=== PATIENT | female | born 1995 | race Caucasian/White ===

== ENCOUNTER 2016-08-05 14:53 | Emergency (ER) | payer SELFPAY ==
[~2016-08-05] VITALS: Ht 149.9 cm; Wt 44.1 kg
[2016-08-05 14:55] VITALS: Ht 149.9 cm; Wt 44.1 kg
--- NOTE | 2016-08-05 15:05 | ERPDOC ---
Departure Disposition Decision Date: Aug 05, 2016 Disposition Decision Time: 17:06 (YURY VANCE APRN) Disposition: 01 DISCHARGED HOME, SELF-CARE Impression Impression (YURY VANCE APRN) Impression: Primary Impression: Nausea & vomiting Vomiting type: unspecified Vomiting Intractability: non-intractable Qualified Codes: R11.2 - Nausea with vomiting, unspecified Additional Impression: Urinary tract infection Urinary tract infection type: acute cystitis Hematuria presence: with hematuria Qualified Codes: N30.01 - Acute cystitis with hematuria Severity: Moderate (YURY VANCE APRN) Condition: Improved Seen By: Mid-level only (YURY VANCE APRN) Patient Instructions: Acute Nausea and Vomiting (ED), Urinary Tract Infection in Women (ED) Problems/Meds/Labs Reviewed?: Yes Medications reviewed and manag: Yes (YURY VANCE APRN) Additional Instructions: You have a urinary tract infection. Take Cipro 500mg twice daily for 7 days. You may dissolve ondansetron 4mg ODT, 1 tab on your tongue every 4-6 hours as needed for nausea/vomiting. Drink 8-12 glass of water daily to stay hydrated. Rest. Avoid use of marijuana. Follow treatment plan Follow with your PCP for reevaluation Sunday if not improving. Follow up care ordered?: Yes Mental Status: Alert, Oriented (YURY VANCE APRN) Scripts Ciprofloxacin HCl (Ciprofloxacin HCl) 500 Mg Tablet 1 TAB PO Q12H for 7 Days, #14 TAB Prov: YURY VANCE APRN 08/05/16 Ondansetron (Ondansetron Odt) 4 Mg Tab.rapdis 4 MG PO Q4-6HPRN, #20 TAB Prov: YURY VANCE APRN 08/05/16 HPI - Abdominal Pain General Chief Complaint: Nausea,Vomiting,Diarrhea Stated Complaint: N/V Time Seen by Provider: 15:02 Source: patient (YURY VANCE APRN) Time Seen by Provider: 15:02 (JENNIFER HENSLEY DO) HPI - Abdominal Pain Initial Comments 20 YO F presents to ED with report of nausea and nonbilious/nonbloody vomiting that started this morning. Patient also reports she has had a subjective fever for 2 days ago. Patient is difficult to obtain hx. because she appears intoxicated. Patient admits that she has been in [place] for the last week smoking marijuana. Says she last smoked marijuana yesterday. Patient denies chills, cough, SOA, CP, abdominal pain, dysuria or back pain. Admits intermittent lower medial abdominal pain (none at this time) and diarrhea that started today. Patient denies any new sexual partner or new/different vaginal discharge. Pain Scale: Now: 0/10, Worst: 10/10 Quality: aching, cramping Location: suprapubic Associated Symptoms: fever/chills, other, DENIES: back pain, chest pain, diaphoresis, fatigue, headache, heartburn, nausea/vomiting, rash, shortness of breath, swelling/mass in abdomen, syncope, weakness (YURY VANCE A [employer]EL[employer]) Allergies: Coded Allergies: No Known Allergies (Unverified , 08/05/16) Past History Past Medical History Pt denies signifigant PMH (SALLIE VANCES A [employer]ELOPER) Surgical History Reproductive/: other (left ovarain cyst removal) (YURY VANCE [employer] DEVELOPER) Family History Family PMH: FOUND: other (noncontributory) (SALLIE VANCES A [employer]ELOPER) Social History Sexuality: male partner (YURY VANCE [employer] DEVELOPER) Review of Systems Constitutional Constitutional: fever, DENIES: chills, dizziness (SALLIE VANCES A [employer]ELOPER) Eyes General: DENIES: erythema, exudate Lids/Accessories: DENIES: erythema, swelling (SALLIE VANCES A [employer]ELOPER) ENMT Ears: DENIES: pain Sinuses: DENIES: congestion, rhinorrhea Mouth/Throat: DENIES: sore throat (SALLIE VANCES A [employer] DEVELOPER) Cardiovascular Cardiac: DENIES: chest pain, murmur Rhythm/Rate: DENIES: palpitations (SALLIE VANCES A [employer]ELOPER) Pulmonary Respiratory: DENIES: cough, dyspnea (SALLIE VANCES A [employer]ELOPER) GI Upper Abdomen: nausea, vomiting, DENIES: pain Lower Abdomen: DENIES: diarrhea, pain (SALLIE VANCES A [employer] DEVELOPER) General: DENIES: dysuria, pain (SALLIE VANCES A [employer] DEVELOPER) Musculoskeletal General: DENIES: joint pain, pain, tenderness (SALLIE VANCES A [employer]ELOPER) Integumentary Skin: DENIES: color change, itching, rash (SALLIE VANCES A [employer]ELOPER) Neurological General: DENIES: ataxia, change in strength, numbness, paralysis/paresis, weakness (SALLIE VANCES A [employer]ELOPER) Psychiatric Psychiatric: DENIES: anxiety, depression, nervousness (SALLIE VANCES A [employer] DEVELOPER) Physical Exam General General Nourishment: well nourished, well developed, no acute distress, adult General Body Habitus: disheveled (SALLIE VANCES A [employer] DEVELOPER) Vitals and Pain Weight: Kilograms: Height (feet): Height (inches): Triage Pain Scale: (SALLIE VANCES A [employer] DEVELOPER) Eyes (brief) Eyes Brief: found: EOMI, PERRL (SALLIE VANCES A [employer] DEVELOPER) ENMT (brief) ENMT Brief: FOUND: TM clear, TM good light reflex, mucosa moist, NOT FOUND: nasal exudate, nasal swelling, pharnyx erythema (SALLIE VANCES A [employer] DEVELOPER) Neck (brief) Neck: FOUND: trachea midline, NOT FOUND: adenopathy, spasm, tenderness, thyromegaly (SALLIE VANCES A [employer] DEVELOPER) Respiratory (brief) Respiratory: FOUND: clear all mello, equal bilaterally, symmetrical (SALLIE VANCES A [employer] DEVELOPER) Cardiovascular (brief) Cardiac: FOUND: regular rate, regular rhythm (SALLIE VANCES A [employer] DEVELOPER) Abdomen (brief) Abdominal Brief: FOUND: bowel normo active x4, soft, NOT FOUND: distended, tender (SALLIE VANCES A [employer] DEVELOPER) Musculoskeletal (brief) Musculoskeletal Brief: NOT FOUND: deformity, tenderness (SALLIE VANCES A [employer] DEVELOPER) Integumentary (brief) Integumentary Brief: FOUND: dry, pink, warm (SALLIE VANCES A [employer] DEVELOPER) Neurologic (brief) Neurological Brief: FOUND: CN w/o gross def to obs, motor-no gross deficits, sensory-no gross deficits (SALLIE VANCES A [employer] DEVELOPER) Psychiatric (brief) Psychiatric Brief: FOUND: alert, normal affect, oriented (SALLIE VANCES A [employer] DEVELOPER ) Differential Diagnoses Considering: Dehydration, Food Poisoning, Gastroenteritis, Hypokalemia, , UTI, Viral Syndrome Considering: PID, Bacterial Vaginitis, Yeast Vaginitis (SALLIE VANCES A [employer]EL[employer]) Progress Results/Orders Orders Procedure Category Date Status Time Cbc W/Auto LAB 08/05/16 Complete Diff-Reflex Manual 15:13 Cmp - Comprehensive LAB 08/05/16 Complete Metabolic 15:13 Lipase LAB 08/05/16 Complete 15:13 Iv Lock (Ed Only) EDM 08/05/16 Transmitted 15:13 Normal Saline (Normal PHA 08/05/16 Complete Saline Iv) 15:13 Ondansetron Inj PHA 08/05/16 Complete (Zofran) 15:15 LAB 08/05/16 Complete Qualitative, Urine 15:13 Drug Screen LAB 08/05/16 Complete Urine-Test At [facility] [place] UA, LAB 08/05/16 Complete Dip&Micro(Complete) & 15:50 Urine Culture ALIS 08/05/16 Complete 16:17 Normal Saline (Normal PHA 08/05/16 Complete Saline Iv) 16:30 Prochlorperazine PHA 08/05/16 Complete (Compazine) 17:00 Ketorolac (Toradol) PHA 08/05/16 Complete 17:15 Ciprofloxacin (Cipro) PHA 08/05/16 Complete 17:15 (JENNIFER HENSLEY DO) Lab Results Laboratory Tests Test 08/05/16 15:33 08/05/16 15:50 08/08/16 11:55 08/10/16 15:53 White Blood Count 13.2T/MM3 Red Blood Count 4.19M/MM3 Hemoglobin 12.2GM/DL Hematocrit 35.8% Mean Corpuscular Volume 85.4UM3 Mean Corpuscular Hemoglobin 29.1UUG Mean Corpuscular Hemoglobin Concent 34.1GM/DL RDW Standard Deviation 40.5FL Platelet Count 228T/MM3 Mean Platelet Volume 10.8UM3 Immature Granulocyte % (Auto) 0.4% Neutrophils (%) (Auto) 84.5% Lymphocytes (%) (Auto) 6.7% Monocytes (%) (Auto) 8.3% Eosinophils (%) (Auto) 0.0% Basophils (%) (Auto) 0.1% Absolute Immature Granulocyte (auto 0.05T/MM3 Absolute Neutrophils (auto) 11.2T/MM3 Absolute Lymphocytes (auto) 0.9T/MM3 Absolute Monocytes (auto) 1.1T/MM3 Absolute Eosinophils (auto) 0.0T/MM3 Absolute Basophils (auto) 0.0T/MM3 Turbidity < 20 Sodium Level 141MEQ/L Potassium Level 3.5MEQ/L Chloride Level 102MEQ/L Carbon Dioxide Level 24MEQ/L Anion Gap 15MEQ/L Blood Urea Nitrogen 11.0MG/DL Creatinine 0.6MG/DL Glomerular Filtration Rate Calc 127 BUN/Creatinine Ratio 18RATIO Glucose Level 115MG/DL Calculated Osmolality 271MOSM/KG Calcium Level 9.6MG/DL Total Bilirubin 1.00MG/DL Icterus Index < 2 Aspartate Amino Transf (AST/SGOT) 14U/L Alanine Aminotransferase (ALT/SGPT) 21U/L Alkaline Phosphatase 59U/L Total Protein 7.6G/DL Albumin 3.9G/DL Globulin 3.7G/DL Albumin/Globulin Ratio 1.1RATIO Lipase 28U/L Chemistry Specimen Hemolysis < 15 Urine Collection Type Voided-not cc-midstr Urine Color Yellow Urine Turbidity Sl cloudy Urine pH 6.5 Urine Specific Midnight 1.020 Urine Protein 2+ Urine Glucose (UA) Negative Urine Ketones 3+ Urine Blood 2+ Urine Nitrite Positive Urine Bilirubin Negative Urine Urobilinogen 0.2EU/DL Urine Leukocyte Esterase Trace Urine RBC 5-10/HPF Urine WBC 30-50/HPF Urine Squamous Epithelial Cells 5-10 Urine Bacteria 3+ Urine Culture Indicated Cult reflexed &setup Urine Test Negative Urine Opiates Screen NegativeNG/ML Urine Oxycodone Screen NegativeNG/ML Urine Methadone Screen NegativeNG/ML Urine Propoxyphene Screen NegativeNG/ML Urine Barbiturates Screen NegativeNG/ML Urine Tricyclic Antidepressants NegativeNG/ML Urine Phencyclidine Screen NegativeNG/ML Urine Amphetamines Screen NegativeNG/ML Urine Methamphetamines Screen NegativeNG/ML Urine Benzodiazepines Screen NegativeNG/ML Urine Cocaine Screen NegativeNG/ML Urine Cannabinoids Screen PositiveNG/ML Urine Drug Screen Confirmation Sent out Urine Drug Screen Information Ref lab rpt scanned Lab Scanned Report LAB RESULTS - [id number] REFERENCE [id number] (JENNIFER HENSLEY DO) Medications Current ED Medications Sodium Chloride (Normal Saline IV) 1,000 ml @ 0 mls/hr Q0M ONCE IV Last administered on 08/05/16 15:37; Start 08/05/16 at 15:13; Stop 08/05/16 at 15:15 ; Status DC Ondansetron HCl (Zofran) 4 mg O ONCE IV Last administered on 08/05/16 15:37; Start 08/05/16 at 15:15; Stop 08/05/16 at 15:16; Status DC Fentanyl 50 mcg 50 mcg O ONCE IV ; Start 08/05/16 at 15:30; Stop 08/05/16 at 15 :31; Status Cancel Sodium Chloride (Normal Saline IV) 1,000 ml @ 0 mls/hr Q0M ONCE IV Last administered on 08/05/16 16:46; Start 08/05/16 at 16:30; Stop 08/05/16 at 16:31 ; Status DC Prochlorperazine Edisylate (Compazine) 10 mg O ONCE IV Last administered on 16:51; Start 08/05/16 at 17:00; Stop 08/05/16 at 17:01; Status DC Ketorolac Tromethamine (Toradol) 30 mg O ONCE IV Last administered on 17:14; Start 08/05/16 at 17:15; Stop 08/05/16 at 17:16; Status DC Ciprofloxacin (Cipro) 500 mg O ONCE PO Last administered on 08/05/16 17:20; Start 08/05/16 at 17:15; Stop 08/05/16 at 17:16; Status DC (JENNIFER HENSLEY DO) Progress Progress WBC 13.2, no band CMP unremarkable UA 2+ ketones, 2+ blood, 30-50 WBC, 3+ bacteria Patient has been able to keep po fluids down in the ED after zofran and IV fluids. I discussed labs with patient and that she has a urinary tract infection which may be causing nausea and vomiting. Discussed that the repeated marijuana smoking may also be causing nausea and vomiting or she may have a gastroenteritis. I discussed with patient treatment plan, use of medications, follow-up with PCP if not improving and return precautions which patient verbalized understanding. (YURY VANCE APRN) YURY VANCE APRN Aug 05, 2016 15:05 JENNIFER HENSLEY DO Aug 10, 2016 20:30
[2016-08-05] MEDS ORDERED: NO ROUTINE MEDS (15:08)
[2016-08-05] MEDS ORDERED: NORMAL SALINE 1,000 ML IV ONE ×2 (15:13→16:30)
[2016-08-05] MEDS ORDERED: ONDANSETRON 4mg/2ml INJECTION IV ONE (15:15)
[2016-08-05] MEDS ORDERED: FENTANYL 100mcg/2ml INJECTION IV ONE (15:30)
[2016-08-05 15:43] LABS: BASOPHILS % (AUTO) 0.1 % (0-2); HCT - HEMATOCRIT 35.8 % (36-46); HGB - HEMOGLOBIN 12.2 GM/DL (12-16); IMMATURE GRANULOCYTE # (AUTO) 0.05 T/MM3 (0.00-0.03); IMMATURE GRANULOCYTE % (AUTO) 0.4 % (0.0-0.5); LYMPHOCYTES # (AUTO) 0.9 T/MM3 (1-4.8); LYMPHOCYTES % (AUTO) 6.7 % (23-45); MEAN CORPUSCULAR HGB 29.1 UUG (26-34); MEAN CORPUSCULAR HGB CONC(MCHC 34.1 GM/DL (31-37); MEAN CORPUSCULAR VOLUME 85.4 UM3 (80-100); MEAN PLATELET VOLUME 10.8 UM3 (9.4-12.4); MONOCYTES # (AUTO) 1.1 T/MM3 (0-0.8); MONOCYTES % (AUTO) 8.3 % (0-9.0); NEUTROPHILS #(AUTO)-ABSOLUTE 11.2 T/MM3 (1.8-7.7); NEUTROPHILS % (AUTO) 84.5 % (33-66); RED BLOOD COUNT 4.19 M/MM3 (4.00-5.20); WBC - WHITE BLOOD COUNT 13.2 T/MM3 (4.5-11.0)
[2016-08-05 15:54] LABS: ALBUMIN 3.9 G/DL (3.5-5.0); ALBUMIN/GLOBULIN RATIO 1.1 RATIO (1.1-2.2); ALKALINE PHOSPHATASE 59 U/L (38-126); ALT (SGPT) 21 U/L (9-52); ANION GAP 15 MEQ/L (5-15); AST (SGOT) 14 U/L (14-36); BUN/CREATININE RATIO 18 RATIO (6-26); CALCIUM 9.6 MG/DL (8.4-10.2); CHLORIDE 102 MEQ/L (98-107); CO2 - CARBON DIOXIDE 24 MEQ/L (22-30); CREATININE 0.6 MG/DL (0.7-1.2); GLOMERULAR FILTRATION RATE 127; GLUCOSE 115 MG/DL (65-110); LIPASE 28 U/L (23-300); POTASSIUM 3.5 MEQ/L (3.6-5); SODIUM 141 MEQ/L (134-144); TOTAL PROTEIN 7.6 G/DL (6.3-8.2)
[2016-08-05 16:01] LABS: BLOOD, URINE 2+ (NEGATIVE); COLOR,URINE YELLOW (YELLOW); LEUKOCYTE ESTERASE ,URINE TRACE (NEGATIVE); NITRITE,URINE POSITIVE (NEGATIVE); UROBILINOGEN,URINE 0.2 EU/DL (NORMAL)
[2016-08-05 16:12] LABS: AMPHETAMINE SCREEN,URINE NEGATIVE; BARBITURATE SCREEN,URINE NEGATIVE; BENZODIAZEPINES SCREEN,URINE NEGATIVE; CANNABINOID SCREEN,URINE POSITIVE; COCAINE SCREEN,URINE NEGATIVE; METHADONE SCREEN, URINE NEGATIVE; METHAMPHETAMINE SCREEN, URINE NEGATIVE; OPIATE SCREEN,URINE NEGATIVE; PHENCYCLIDINE SCREEN,URINE NEGATIVE; TRICYCLIC ANTIDEPRESSANT,URINE NEGATIVE
[2016-08-05 16:15] LABS: BACTERIA,URINE 3+ (NEGATIVE); WBC,URINE 30-50 /HPF (0-5)
[2016-08-05] MEDS ORDERED: PROCHLORPERAZINE 10mg/2ml INJECTION IV ONE (17:00)
[2016-08-05] MEDS ORDERED: CIPR-280 PO (17:15)
[2016-08-05] MEDS ORDERED: ONDA4TAB10 PO (17:15)
[2016-08-05] MEDS ORDERED: KETOROLAC 30mg/ml INJECTION IV ONE (17:15)
[2016-08-05] MEDS ORDERED: CIPROFLOXACIN 500 MG TABLET PO ONE (17:15)
[2016-08-05 17:30] VITALS: BP 115/74; PULSE 76; RESP 14; TEMP 98.7; O2SAT 98
== END 2016-08-05 17:30 | disposition home or self-care (01) ==
LOC: ED 14:53
DX: R11.2 Nausea with vomiting, unspecified (principal); N30.01 Acute cystitis with hematuria
CPT/HCPCS: 80053; 80306; 81001; 81025; 83690; 85025; 87077; 87086; 87186